=== PATIENT | male | born 1980 | race Caucasian/White ===

== ENCOUNTER 2023-03-14 09:36 | Outpatient (CLI) | payer SELFPAY | END 2023-03-14 23:59 | disposition critical access hospital (66) | LOC: EMS 09:36 | DX: R11.2 Nausea with vomiting, unspecified (principal); R52 Pain, unspecified; R63.0 Anorexia | CPT/HCPCS: A0425; A0427 ==

== ENCOUNTER 2023-03-14 09:58 | Emergency (ER) | payer SELFPAY ==
[2023-03-14] MEDS ORDERED: ONDANSETRON 4 MG/2 ML VIAL IVP STA (10:14)
[2023-03-14] MEDS ORDERED: HYDROmorphone 1 MG/ML CARPUJECT IVP STA ×2 (10:14→11:04)
[2023-03-14] MEDS ORDERED: KETOROLAC 15 MG/ML VIAL IVP STA (10:14)
[2023-03-14] MEDS ORDERED: SODIUM CHLORIDE 0.9% 1,000 ML IV STA (10:14)
--- NOTE | 2023-03-14 10:15 | ED Physician Documentation ---
History of Present Illness - Stated complaint Stated Complaint: WITHDRAWL - Chief complaint Chief Complaint: General - History obtained from History obtained from: Patient - Additonal information Additional information: 32-year-old gentleman with history of fentanyl and Xanax abuse. He is visiting his mom to take care of her, he lives in [facility]. He is a heavy fentanyl and Xanax abuser and since moving up here couple of weeks ago has been able to find some blue pills but is not taking his accustomed dose of fentanyl which was much higher. He has allover body pain and has been vomiting. PD PAST MEDICAL HISTORY - Past Medical History Past Medical History: Yes - Past Surgical History Past Surgical History: No - Present Medications Home Medications: Ambulatory Orders Medication Instructions Recorded Confirmed Amox/Clav 875/125 [Augmentin] 1 each PO Q12H #20 tablet 03/14/23 - Allergies Allergies/Adverse Reactions: Allergies Allergy/AdvReac Type Severity Reaction Status Date / Time No Known Drug Allergies Allergy Verified 03/14/23 10:12 - Social History Does the pt smoke?: Yes Smoking Status: Current every day smoker Does the pt drink ETOH?: No Does the pt have substance abuse?: Yes Substance Use and Type: Prescription Pills, Other - Immunizations Immunizations are current?: Yes PD ED PE NORMAL - Vitals Vital signs reviewed: Yes - General General: Alert and oriented X 3, Other (Anxious) - Cardiac Cardiac: RRR, No murmur - Respiratory Respiratory: No respiratory distress, Clear bilaterally - Abdomen Abdomen: Non tender - Neuro Neuro: Alert and oriented X 3, Normal speech Results - Vitals Vitals: Vital Signs - 24 hr 03/14/23 10:04 Temperature 36.4 C L Heart Rate 79 Respiratory 20 Rate Blood Pressure 111/67 O2 Saturation 100 Oxygen O2 Source Room air - Labs Labs: Laboratory Tests 03/14/23 03/14/23 03/14/23 12:01 12:01 12:10 WBC 9.0 RBC 4.12 L Hgb 11.4 L Hct 36.4 L MCV 88.3 MCH 27.7 MCHC 31.3 L RDW 12.6 Plt Count 298 MPV 9.6 Neut # (Auto) 6.8 H Lymph # (Auto) 1.1 L Todd # (Auto) 0.8 Eos # (Auto) 0.2 Baso # (Auto) 0.0 Absolute Nucleated RBC 0.00 Nucleated RBC % 0.0 Sodium 137 Potassium 3.4 L Chloride 104 Carbon Dioxide 27 Anion Gap 6.0 BUN 16 Creatinine 0.8 Estimated GFR (MDRD) 107 Glucose 141 H Calcium 8.8 Magnesium 1.8 Total Bilirubin 0.9 AST 16 ALT 20 Alkaline Phosphatase 77 Total Creatine Kinase 112 Total Protein 7.1 Albumin 3.8 Globulin 3.3 Albumin/Globulin Ratio 1.2 Lipase 15 TSH 1.12 Urine Color YELLOW Urine Clarity CLOUDY Urine pH 6.0 Ur Specific [place] 1.020 Urine Protein 30 H Urine Glucose (UA) NEGATIVE Urine Ketones NEGATIVE Urine Occult Blood SMALL H Urine Nitrite POSITIVE H Urine Bilirubin NEGATIVE Urine Urobilinogen 1 (NORMAL) Ur Leukocyte Esterase TRACE H Urine RBC 6-10 H Urine WBC 11-25 H Ur Squamous Epith Cells RARE Squamous Urine Bacteria Moderate H Ur Microscopic Review INDICATED Urine Culture Comments INDICATED Salicylates < 1.5 Urine Opiates Screen POSITIVE H Ur Buprenorphine Scrn NEGATIVE Ur Oxycodone Screen POSITIVE H Urine Methadone Screen POSITIVE H Acetaminophen < 0.1 Ur Barbiturates Screen NEGATIVE Ur Tricyclics Screen NEGATIVE Ur Phencyclidine Scrn NEGATIVE Ur Amphetamine Screen POSITIVE H U Methamphetamines Scrn POSITIVE H U Benzodiazepines Scrn NEGATIVE Urine Cocaine Screen NEGATIVE U Cannabinoids Screen POSITIVE H Ur Drug Screen Comment CUTOFF CONC BELOW: Ethyl Alcohol < 10.0 PD Medical Decision Making - ED course ED course: 42-year-old gentleman with fentanyl and benzodiazepine withdrawal. He was given divided doses of medication here with improvement. 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 Labs reviewed showing mild anemia, basically normal CMP, he has pyuria and a thomson positive drug screen. Asked him if he had any symptoms of UTI and he replied no. He does feel like he has pneumonia though and so reasonable to cover with an antibiotic that would work for both. Does not have a white count. He was not concerned about STDs per se. I will give him a prepack of nasal Narcan given his high overdose potential. Departure - Departure Disposition: 01 Home, Self Care Clinical Impression: Drug abuse and dependence, UTI (urinary tract infection) Condition: Good Record reviewed to determine appropriate education?: Yes Instructions: ED Withdrawal Narcotic Prescriptions: Amox/Clav 875/125 [Augmentin] 1 each PO Q12H #20 tablet Comments: We will culture your urine, the results should be done in 48-72 hours. If an antibiotic change is necessary we will call you. Return if worse in the meantime, especially if you develop increasing flank pain, fevers, or cannot keep down the medication. We think you would benefit from admission for detoxification and/or rehabilitation from alcohol and/or drugs. The closest facility that does this is in [place]. It is: [address] [address] Call them at [phone] to arrange an intake appointment. Forms: PCP List
[2023-03-14] MEDS ORDERED: LORazepam 2 MG/ML VIAL IVP STA (11:04)
[2023-03-14 12:05] LABS: BASOPHILS % (AUTO) 0.2 %; EOSINOPHILS # (AUTO) 0.2 10^3/uL (0.0-0.7); EOSINOPHILS % (AUTO) 2.3 %; HCT - HEMATOCRIT 36.4 % (42.0-52.0); HGB - HEMOGLOBIN 11.4 g/dL (14.0-18.0); LYMPHOCYTES # (AUTO) 1.1 10^3/uL (1.5-3.5); LYMPHOCYTES % (AUTO) 12.7 %; MEAN CORPUSCULAR HEMOGLOBIN 27.7 pg (27.0-31.0); MEAN CORPUSCULAR HGB CONC 31.3 g/dL (32.0-36.0); MEAN CORPUSCULAR VOLUME 88.3 fL (80.0-94.0); MEAN PLATELET VOLUME 9.6 fL (7.4-11.4); MONOCYTES # (AUTO) 0.8 10^3/uL (0.0-1.0); MONOCYTES % (AUTO) 8.4 %; NEUTROPHILS # (AUTO) 6.8 10^3/uL (1.5-6.6); NEUTROPHILS % (AUTO) 76.1 %; PLT - PLATELET COUNT 298 10^3/uL (130-450); RED BLOOD COUNT 4.12 10^6/uL (4.70-6.10); RED CELL DISTRIBUTION WIDTH 12.6 % (12.0-15.0)
[2023-03-14 12:16] LABS: BILIRUBIN,URINE NEGATIVE (NEGATIVE); GLUCOSE, URINE (UA) NEGATIVE (NEGATIVE); KETONES,URINE (UA) NEGATIVE (NEGATIVE); LEUKOCYTE ESTERASE, URINE TRACE (NEGATIVE); NITRITE,URINE POSITIVE (NEGATIVE); OCCULT BLOOD,URINE SMALL (NEGATIVE); PROTEIN,URINE 30 mg/dL (NEGATIVE); UROBILINOGEN,URINE 1 (NORMAL) E.U./dL (NORMAL)
[2023-03-14] MEDS ORDERED: LORazepam 1 MG TABLET PO STA (12:20)
[2023-03-14] MEDS ORDERED: oxyCODONE 5 MG TABLET PO STA (12:20)
[2023-03-14 12:21] LABS: ALBUMIN 3.8 g/dL (3.2-5.5); ALBUMIN/GLOBULIN RATIO 1.2 (1.0-2.2); ALKALINE PHOSPHATASE 77 IU/L (42-121); ALT ALANINE AMINOTRANSFERASE 20 IU/L (10-60); AST ASPARTATE AMINOTRANSFERASE 16 IU/L (10-42); BILIRUBIN,TOTAL 0.9 mg/dL (0.2-1.0); BUN - BLOOD UREA NITROGEN 16 mg/dL (6-20); CALCIUM 8.8 mg/dL (8.5-10.3); CARBON DIOXIDE - CO2 27 mmol/L (21-32); CHLORIDE 104 mmol/L (101-111); CK- CREATINE KINASE 112 IU/L (30-223); CREATININE 0.8 mg/dL (0.6-1.3); ETOH - ETHANOL < 10.0 mg/dL; GFR - MDRD 107 (>89); GLUCOSE 141 mg/dL (74-104); LIPASE 15 U/L (11-82); MAGNESIUM 1.8 mg/dL (1.7-2.3); POTASSIUM 3.4 mmol/L (3.5-4.5); SODIUM 137 mmol/L (135-145); TOTAL PROTEIN 7.1 g/dL (6.4-8.9)
[2023-03-14 12:25] LABS: ACETAMINOPHEN < 0.1 ug/mL; SALICYLATE < 1.5 mg/dL
[2023-03-14 12:28] LABS: AMPHETAMINE SCREEN,URINE POSITIVE (NEGATIVE); BARBITURATE SCREEN,UR NEGATIVE (NEGATIVE); BENZODIAZEPINES SCREEN, URINE NEGATIVE (NEGATIVE); BUPRENORPHINE SCREEN, URINE NEGATIVE (NEGATIVE); CLARITY,URINE CLOUDY (CLEAR); COCAINE SCREEN URINE NEGATIVE (NEGATIVE); METHADONE SCREEN, URINE POSITIVE (NEGATIVE); METHAMPHETAMINES SCREEN, URINE POSITIVE (NEGATIVE); OPIATE SCREEN, URINE POSITIVE (NEGATIVE); OXYCODONE SCREEN, URINE POSITIVE (NEGATIVE); THC CANNABINOID SCREEN, URINE POSITIVE (NEGATIVE); TRICYCLIC ANTIDEPRESSANT,URINE NEGATIVE (NEGATIVE)
[2023-03-14 12:35] LABS: THYROID STIMULATING HORMONE 1.12 uIU/mL (0.34-5.60)
[2023-03-14 12:35] LABS: BACTERIA,URINE Moderate /HPF (None Seen); SQUAMOUS EPITHELIAL CELL,UR RARE Squamous (<= Few)
[2023-03-14] MEDS ORDERED: NALOXONE HCL NASAL SPRAY KIT NAS STA (12:47)
[2023-03-14 13:02] VITALS: BP 104/51; O2SAT 97
--- NOTE | 2023-03-16 15:41 | ED Physician Documentation ---
ED Addendum - Addendum Addendum: 03/16/23 15:40 The patient's urine culture came back showing Staph epidermidis resistant to penicillin. He had been prescribed Augmentin. It is sensitive to quinolones and tetracycline. We can change his antibiotic to doxycycline 100 mg twice daily for a week. There was not a pharmacy listed. His phone number I tried calling and was said not in service. I do not have a mechanism to get in contact with him at this point. Will have nursing staff attempt or perhaps send a letter.
== END 2023-03-14 12:53 | disposition home or self-care (01) ==
LOC: EDBD → ED 09:58
DX: F11.13 Opioid abuse with withdrawal (principal); N39.0 Urinary tract infection, site not specified; B95.7 Other staphylococcus as the cause of diseases classified elsewhere; F17.200 Nicotine dependence, unspecified, uncomplicated
CPT/HCPCS: 36415; 80053; 80306; 80307; 80320; 80329; 81001; 82550; 83690; 83735; 84443; 85025; 87077; 87086; 87181; 87635; 96361; 96374; 96375; 99284; 99285; A9270; J1170; J2060; J8499; 81003